=== PATIENT | female | born 2000 | race Caucasian/White ===

== ENCOUNTER 2024-03-27 08:00 | Outpatient (CLI) | payer OTHER ==
[2024-03-27 21:26] LABS: BACTERIAL VAGINOSIS DNA NEGATIVE (NEGATIVE); CANDIDA GLABRATA DNA NEGATIVE (NEGATIVE); CANDIDA GROUP DNA NEGATIVE (NEGATIVE); CANDIDA KRUSEI DNA NEGATIVE (NEGATIVE); TRICHOMONAS VAGINALIS DNA NEGATIVE (NEGATIVE)
== END 2024-03-27 23:58 | disposition home or self-care (01) ==
LOC: LAB.WC 08:00
PROVIDERS: ATTEND Obstetrics & Gynecology
DX: L29.8 Other pruritus (principal)
CPT/HCPCS: 81514

== ENCOUNTER 2024-04-03 11:06 | Outpatient (CLI) | payer OTHER ==
[2024-04-03 18:18] LABS: ALBUMIN 4.3 g/dL (3.2-5.5); ALBUMIN/GLOBULIN RATIO 1.5 (1.0-2.2); ALKALINE PHOSPHATASE 78 IU/L (42-121); ALT ALANINE AMINOTRANSFERASE 16 IU/L (10-60); AST ASPARTATE AMINOTRANSFERASE 17 IU/L (10-42); BILIRUBIN,TOTAL 0.5 mg/dL (0.2-1.0); BUN - BLOOD UREA NITROGEN 11 mg/dL (6-20); CALCIUM 9.5 mg/dL (8.5-10.3); CARBON DIOXIDE - CO2 28 mmol/L (21-32); CHLORIDE 104 mmol/L (101-111); CHOL/HDL RATIO 2.9 (<4.4); CHOLESTEROL 156 mg/dL; CREATININE 0.7 mg/dL (0.6-1.3); GFR - MDRD 105 (>89); GLUCOSE 82 mg/dL (74-104); HDL CHOLESTEROL 54 mg/dL; LDL CHOLESTEROL,CALCULATED 86 mg/dL; LDL/HDL RATIO 1.6 (<4.4); SODIUM 138 mmol/L (135-145); TOTAL PROTEIN 7.1 g/dL (6.4-8.9); TRIGLYCERIDES 81 mg/dL; VLDL CHOLESTEROL 16 mg/dL
[2024-04-03 18:45] LABS: THYROID STIMULATING HORMONE 0.49 uIU/mL (0.34-5.60)
[2024-04-04 18:07] LABS: THYROGLOBULIN ANTIBODY <1.0 IU/mL (0.0-0.9); THYROID PEROXIDASE (TPO) AB 14 IU/mL (0-34)
== END 2024-04-03 11:07 | disposition home or self-care (01) ==
LOC: LAB.N 11:06
PROVIDERS: ATTEND Obstetrics & Gynecology
DX: E03.9 Hypothyroidism, unspecified (principal); E88.819 Insulin resistance, unspecified; L29.8 Other pruritus
CPT/HCPCS: 36415; 80053; 80061; 81599; 83525; 83721; 84439; 84443; 84481; 86376; 86800

== ENCOUNTER 2024-04-24 12:58 | Outpatient (CLI) | payer OTHER ==
[2024-04-24 18:24] LABS: PROLACTIN 11.91 ng/mL
[2024-04-25 07:09] LABS: ESTRADIOL 65.5 pg/mL (.); PROGESTERONE 1.1 ng/mL (.)
== END 2024-04-24 12:59 | disposition home or self-care (01) ==
LOC: LAB.N 12:58
PROVIDERS: ATTEND Obstetrics & Gynecology
DX: N94.3 Premenstrual tension syndrome (principal)
CPT/HCPCS: 36415; 81599; 82670; 83001; 83002; 84144; 84146; 84270; 84402; 84403